=== PATIENT | male | born 1990 | race African-American/Black ===

== ENCOUNTER 2024-03-16 15:41 | Emergency (ER) | payer OTHER ==
[~2024-03-16] VITALS: Ht 175.3 cm; Wt 63.6 kg
[2024-03-16 15:56] VITALS: TEMP 98; O2SAT 100
[2024-03-16] MEDS: ACETAMINOPHEN 325MG TABLET PO ONE (19:06)
[2024-03-16] MEDS: IBUPROFEN 600MG TABLET PO ONE (19:06)
[2024-03-16] MEDS ORDERED: IBUP-1523 MT (20:15)
[2024-03-16] MEDS ORDERED: TOPUD MT (20:15)
[2024-03-16 20:39] VITALS: BP 135/77; PULSE 88; RESP 20
== END 2024-03-16 20:40 | disposition home or self-care (01) ==
LOC: ER 15:41
DX: M54.2 Cervicalgia (principal); Z98.890 Other specified postprocedural states
CPT/HCPCS: 72040; 99283